=== PATIENT | female | born 1955 | race Caucasian/White ===

== ENCOUNTER 2021-07-14 11:03 | Emergency (ER) | payer OTHER, MEDICARE ==
[2021-07-15 13:07] LABS: SARS-CoV-2 NAA Not Detected (Not Detected)
== END 2021-07-14 12:02 | disposition home or self-care (01) ==
LOC: JVIRT 11:03
DX: Z20.822 Contact with and (suspected) exposure to COVID-19 (principal)
CPT/HCPCS: C9803; Q3014-GT; U0003; U0005